=== PATIENT | male | born 1955 | race Caucasian/White ===

== ENCOUNTER 2024-08-15 08:59 | Outpatient (CLI) | payer OTHER ==
[~2024-08-15 08:59] MED LIST: NO HOME MEDS; ONDA8TAB9 PO
--- NOTE | 2024-08-15 11:58 | RADIOLOGY REPORT ---
CLINICAL INDICATION: Arthritis. TECHNIQUE: Noncontrast CT of the right shoulder was performed. Sagittal and coronal reformatted image s are provided. COMPARISON: None CT Dose: CTDI volume is 31.5 mGy. Dose-length product is 869.9 mGy*cm FINDINGS: No fracture or dislocation. Glenohumeral joint space narrowing and osteophyte formation is noted. High-riding humeral head relative to the glenoid suggesting underlying rotator cuff insufficie ncy. The acromioclavicular joint space is maintained. There is a 4 mm right lower lobe solid pulmonary nodule (series 6, image 354). IMPRESSION: 1. Right glenohumeral joint arthritis. No acute fracture. 2. 4 mm right lower lobe pulmonary nodule measuring [address] scans at this medical facility are performed using dose modulation techniques as appropriate t o a performed exam including the following: Automated exposure control was utilized; adjustment of th e MA and/or KV according to patient size; and use of iterative reconstruction technique.
== END 2024-08-15 23:59 | disposition home or self-care (01) ==
LOC: 64 CT 08:59
PROVIDERS: ATTEND Orthopaedic Surgery
DX: M19.111 Post-traumatic osteoarthritis, right shoulder (principal); R91.1 Solitary pulmonary nodule
CPT/HCPCS: 73200